=== PATIENT | female | born 2005 | race African-American/Black ===

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

== ENCOUNTER 2023-02-11 14:32 | Emergency (ER) | payer BC, MEDICAID, SELFPAY ==
--- NOTE | 2023-02-11 14:36 | ED.FEMALEGU ---
HPI - Female Genitourinary General Chief complaint: Urogenital-Female Stated complaint: STD Time Seen by Provider: 02/11/23 14:47 Source: patient and RN notes reviewed Mode of arrival: ambulatory Limitations: no limitations History of Present Illness HPI Narrative: 17-year-old female who is proximally 26 weeks presents with concern for STDs. She reports she has had foul-smelling vaginal discharge, bumps in her general area that have a small amount of bleeding. She denies abdominal pain. She reports she can feel movement. She has not had care to this point. elicited complaint: UTI Related Data Allergies Allergy/AdvReac Type Severity Reaction Status Date / Time No Known Allergies Allergy Verified 09/22/22 10:25 Review of Systems Review of Systems: CONSTITUTIONAL: Denies malaise, chills, sweats, or fever. CARDIOVASCULAR: Denies chest pain, palpitations, or edema. RESPIRATORY: Denies cough or dyspnea. GASTROINTESTINAL: Denies abdominal pain, nausea, vomiting, diarrhea GENITOURINARY: Denies dysuria, frequency, urgency, suprapubic pressure. Denies flank pain or hematuria. Reports abnormal vaginal discharge SKIN: Denies rash or itching. MUSCULOSKELETAL: Denies back pain or myalgia. All systems reviewed & are unremarkable except as noted in HPI and below PMFSH Past Medical History Medical History No significant medical problems Surgical History Surgical History (Updated 09/12/21 @ 20:01 by Britni Lowry APRN) No pertinent past surgical history Social History Social History (Updated 09/12/21 @ 20:01 by Britni Lowry APRN) Living arrangements: with family Gender identity (if verbalized by the patient): Female Comments At time of signature, agree with nursing past medical, surgical, social and family history. There is no relevant family history pertinent to the presenting complaint Exam Narrative: GENERAL: Well-appearing, well-nourished, and in no acute distress. HEAD: Normocephalic. EYES: PERRLA, conjunctivae clear. NECK: Supple. No lymphadenopathy CHEST: Clear to auscultation. No respiratory distress. HEART: Regular rate and rhythm. SKIN: Warm, dry, no rash. NEURO: Alert and oriented x3. PSYCH: Normal mood and affect : Speculum Exam - Vagina: abnormal vaginal discharge malodorous and yellow and erythematous Speculum Exam - Cervix: normal appearance of the cervix and Other cervical findings present OB/external & speculum: vaginal discharge Course Course Emergency Course: Discussed importance of care with patient, gave her resources to try to find an poultry boner. Positive heart tones Patient is aware of understands and agrees to treatment plan. Anticipatory guidance given. Patient agrees to follow-up as directed and is aware of reasons to seek care at the emergency department. Portions of this record may have been created with voice recognition software Level of Care: Express Care Visit Vital Signs Vital signs: Reviewed. MDM - Female Genitourinary MDM Narrative Medical decision making narrative: Exam findings and UA show no acute concerns or changes; patient is non-toxic appearing and is in no distress. Patient is appropriate for outpatient treatment and follow-up. Differential Diagnosis Differential diagnosis: Likely urinary tract infection and cystitis Critical Care Time Critical Care Time Critical Care Time: No Discharge Plan Discharge Clinical Impression: Screen for STD (sexually transmitted disease) Patient Disposition: Home, Self-Care Condition: Stable Instructions: Antibiotic Form, Safe Sex Practices (ED) Additional Instructions: You were given a list of OB-GYNs, please start calling tomorrow to get an appointment. You have been tested for potential gonorrhea, chlamydia, and trichomoniasis today. You have received antibiotics to treat gonorrhea today, a prescript
[2023-02-11 14:44] VITALS: BP 127/78; PULSE 120; RESP 16; TEMP 37.2; O2SAT 99
--- NOTE | 2023-02-11 14:52 | PC.NURSE ---
in br to obtain ua spec.
[2023-02-11] MEDS: cefTRIAXone 500 MG, LIDOCAINE HCL 1% LOCAL INJ 1 ML IM (15:17)
[2023-02-11] MEDS: AZITHROMYCIN 250 MG TABLET 1000 MG PO (15:18)
--- NOTE | 2023-02-11 15:52 | PC.NURSE ---
fht done and obvious movement noted by study specialist and rn at bedside.
[2023-02-11 17:20] LABS: Trichomonas Vag PCR NOT DETECTED (NOT DETECTE)
[2023-02-11 17:43] LABS: Chlamydia trachomatis NOT DETECTED (NOT DETECTE); Neisseria gonorrhoeae PCR NOT DETECTED (NOT DETECTE)
== END 2023-02-11 15:45 | disposition home or self-care (01) ==
PROVIDERS: Emergency Provider Nurse Practitioner
DX: O26.892 Other specified pregnancy related conditions, second trimester (principal); Z11.3 Encounter for screening for infections with a predominantly sexual mode of transmission; Z3A.26 26 weeks gestation of pregnancy
CPT/HCPCS: 87491; 87591; 87661; 96372; 99214; A9270; G0463; J0696